=== PATIENT | female | born 1960 | race Caucasian/White ===

== ENCOUNTER 2021-07-04 12:22 | Outpatient (CLI) | payer OTHER ==
[2021-07-04 12:42] LABS: BASOPHILS % (AUTO) 0.3 %; EOSINOPHILS # (AUTO) 0.1 10^3/uL (0.0-0.7); EOSINOPHILS % (AUTO) 1.3 %; HCT - HEMATOCRIT 37.7 % (37.0-47.0); HGB - HEMOGLOBIN 12.6 g/dL (12.0-16.0); LYMPHOCYTES # (AUTO) 1.5 10^3/uL (1.5-3.5); MEAN CORPUSCULAR HEMOGLOBIN 30.4 pg (27.0-31.0); MEAN CORPUSCULAR HGB CONC 33.4 g/dL (32.0-36.0); MEAN CORPUSCULAR VOLUME 91.1 fL (81.0-99.0); MEAN PLATELET VOLUME 9.1 fL (7.9-10.8); MONOCYTES # (AUTO) 0.5 10^3/uL (0.0-1.0); NEUTROPHILS # (AUTO) 7.2 10^3/uL (1.5-6.6); NEUTROPHILS % (AUTO) 77.1 %; PLT - PLATELET COUNT 297 10^3/uL (130-450); RED BLOOD COUNT 4.14 10^6/uL (4.20-5.40); RED CELL DISTRIBUTION WIDTH 15.5 % (12.0-15.0); WHITE BLOOD COUNT 9.4 x10^3/uL (4.8-10.8)
[2021-07-04 12:54] LABS: ALBUMIN 3.9 g/dL (3.2-5.5); ALBUMIN/GLOBULIN RATIO 1.3 (1.0-2.2); BILIRUBIN,TOTAL 0.6 mg/dL (0.2-1.0); CALCIUM 9.5 mg/dL (8.5-10.3); CREATININE 0.8 mg/dL (0.4-1.0); POTASSIUM 4.5 mmol/L (3.5-5.0); TOTAL PROTEIN 6.8 g/dL (6.7-8.2)
[2021-07-04] MEDS ORDERED: IOVERSOL 320 100 ML VIAL IVP ONE ×2 (12:56→14:23)
[2021-07-04] MEDS ORDERED: IOPAMIDOL-300 50 ML VIAL ONE (12:56)
[2021-07-04 13:13] LABS: THYROID STIMULATING HORMONE 0.45 uIU/mL (0.34-5.60)
[2021-07-04 13:15] LABS: FREE T4 (FREE THYROXINE) 1.25 ng/dL (0.58-1.64)
[2021-07-04] MEDS ORDERED: IOPAMIDOL-300 50 ML VIAL PO ONE (14:24)
--- NOTE | 2021-07-04 14:32 | CT Report ---
PROCEDURE: Abdomen/Pelvis W INDICATIONS: METASTATIC SMALL CELL CARCINOMA CONTRAST: IV CONTRAST: Optiray 320 ml: 100 PO CONTRAST: Isovue 300 ml50 TECHNIQUE: After the administration of oral and intravenous contrast, 5 mm thick sections acquired from the diap hragms to the symphysis. 5 mm thick coronal and sagittal reformats were acquired. For radiation dos e reduction, the following was used: automated exposure control, adjustment of mA and/or kV accordin g to patient size. COMPARISON: Same day CT chest. FINDINGS: Image quality: Excellent. ABDOMEN: Lung bases: Small opacity at the right lung base. No pleural effusion. Heart size is normal. Solid organs: Liver and spleen are normal in size and enhancement. Well-circumscribed hepatic hypode nsity at the dome of the liver, (3/8). This has the appearance of a benign cyst. Gallbladder is absen t. Biliary system is non dilated. Pancreas enhances normally. No adrenal nodules. Kidneys demonst rate normal size and enhancement, without hydronephrosis. Small left renal cysts at the inferior pole measuring 1 cm, (6/33, 31). Small right cortical hypodensities which are too small to further charac terize. Peritoneum and bowel: Bowel loops demonstrate normal wall thickness and caliber. Small duodenal dive rticulum. Colonic diverticulosis. The appendix is not seen. No free fluid or air. Nodes and vessels: No retroperitoneal or mesenteric adenopathy by size criteria. Low-density cyst an terior to the left renal artery measuring 2.6 cm, (3/25). Aorta and inferior vena cava are normal in size. Miscellaneous: No ventral hernias. PELVIS: Genitourinary: Bladder wall thickness is normal. Uterus is absent. Miscellaneous: No inguinal hernias or adenopathy. Bones: No suspicious bony lesions. Left pubic rami bone island. DDD. No vertebral body compression fractures. IMPRESSION: 1. No metastatic disease identified. 2. Small cystic lesions at the inferior pole the right kidney measuring 1 cm. These aren't difficult to characterize given their small size. These measure greater than fluid density and could be complic ated or solid. -Recommend renal ultrasound or renal MRI for further characterization. Please see separately dictated same day CT chest. Reviewed by: Chris Vasques MD on 07/04/2021 2:30 PM PST Approved by: Chris Vasques MD on 07/04/2021 2:30 PM [facility] Station ID: [id number]
--- NOTE | 2021-07-04 14:46 | CT Report ---
PROCEDURE: CHEST W INDICATIONS: METASTATIC SMALL CELL CARCINOMA CONTRAST: IV CONTRAST: Optiray 320 ml: 100 PO CONTRAST: Isovue 300 ml50 TECHNIQUE: After the administration of intravenous contrast, 1 mm axial images were acquired from the pulmonary apices through the posterior costophrenic angles. Axial 5 mm soft tissue kernel reconstructions were performed as well as 8 mm axial MIP and coronal and sagittal 5 mm reformations. For radiation dose reduction, the following was used: automated exposure control, adjustment of mA and/or kV according to patient size. COMPARISON: Same day CT abdomen and pelvis. FINDINGS: Image quality: Excellent. Lungs and pleura: Mild emphysematous change. Small opacities at the right lower lobe and right middl e lobe. No acute air space opacities. No pleural effusions or pneumothorax. Central and peripheral airways are patent and normal in caliber. Mediastinum: Heart size is normal. No pericardial effusion. No mediastinal or hilar adenopathy by size criteria. Precarinal node measuring is 0.8 cm. Thoracic aorta and central pulmonary arteries are normal in size. No aortic dissection. No central pulmonary embolism. Esophagus is normal in caliber . No hiatal hernia. Bones and chest wall: No suspicious bony lesions. No vertebral body compression fractures. No axil celio or supraclavicular adenopathy by size criteria. Atrophic thyroid. Abdomen: Please see centrally dictated same day CT abdomen and pelvis. IMPRESSION: No mass or metastatic disease identified. Small opacities in the right lung. These could be due to infectious/inflammatory etiology. Reviewed by: Chris Vasques MD on 07/04/2021 2:45 PM [facility] Approved by: Chris Vasques MD on 07/04/2021 2:45 PM PST Station ID: [id number]
--- NOTE | 2021-07-04 15:03 | CT Report ---
PROCEDURE: SOFT TISSUE NECK W INDICATIONS: METASTATIC SMALL CELL CARCINOMA CONTRAST: IV CONTRAST: Optiray 320 ml: 100 PO CONTRAST: Isovue 300 ml50 TECHNIQUE: After the administration of intravenous contrast, 3.0 mm axial sections acquired from the sella to th e aortic arch. Additional oblique axial 3.0 mm sections acquired through the pharynx. 3 mm thick co brianda reformats were generated. For radiation dose reduction, the following was used: automated exp osure control, adjustment of mA and/or kV according to patient size. COMPARISON: CT chest 07/04/2021 FINDINGS: Image quality: Excellent. Lymph nodes: No enlarged lymph nodes seen throughout the neck. Vessels: Visualized vasculature appears patent. Neck spaces: There is overall appearance of soft tissue haziness at the level of the fracture VOCAL c ords suprahyoid region. No distinct Glands: The parotid and submandibular glands appear normal. The thyroid is normal in size and there are no incidental findings. Miscellaneous: Visualized brain and orbits appear normal. Lung apices appear clear. There is thicke bogdan of the right anterior aspect of the sternocleidomastoid muscle best seen on series 2 image 61. T here is loss of fat plane between the muscle and the time. In addition, strandy appearance is noted e xtending medial posteriorly from the area of asymmetric soft tissue prominence within the space of th e jugular and carotid vasculature. The right aspect of the hyoid bone is not visualized and possibly secondary to previous resection. There is stranding within the subcutaneous fat of the anterior neck at the level of the hyoid. Bones: No suspicious bony lesions. Visualized sinuses and mastoids appear unremarkable. IMPRESSION: Asymmetric soft tissue prominence at the level of the anterior right sternocleidomastoid becoming con tiguous with the right lateral inferior tongue/floor of mouth as described above. This is suspicious for mass lesion. Subcutaneous fat stranding is present possibly related to prior postsurgical/treatme nt change. No priors are available for comparison. If they become available, an addendum will be issu ed after comparison. 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 No priors are available for comparison. If they become available, an addendum will be issued after comparison. No adenopathy. CLINICAL RECOMMENDATION STATEMENTS: In patients <35 years with an ITN detected on CT, MRI, or extrathyroidal ultrasound, the Committee re commends further evaluation with dedicated thyroid ultrasound if the nodule is "e1 cm and has no susp icious imaging features, and if the patient has normal life expectancy. In patients "e35 years with an ITN detected on CT, MRI, or extrathyroidal ultrasound, the Committee r ecommends further evaluation with dedicated thyroid ultrasound if the nodule is "e1.5 cm and has no s uspicious imaging features, and if the patient has normal life expectancy. (ACR, 2014) Reviewed by: Elena Schneider MD on 07/04/2021 3:01 PM PST Approved by: Elena Schneider MD on 07/04/2021 3:01 PM PST Station ID: [id number]
== END 2021-07-04 12:23 | disposition home or self-care (01) ==
LOC: DI 12:22
PROVIDERS: ATTEND Internal Medicine Hematology & Oncology
DX: C80.1 Malignant (primary) neoplasm, unspecified (principal); N28.1 Cyst of kidney, acquired
CPT/HCPCS: 36415; 70491; 71260; 74177; 80053; 84439; 84443; 85025; Q9967

== ENCOUNTER 2021-08-20 07:42 | Outpatient (CLI) | payer OTHER | END 2021-08-20 07:43 | disposition E | LOC: EMS 07:42 | DX: I46.9 Cardiac arrest, cause unspecified (principal) | CPT/HCPCS: A0425; A0428 ==